=== PATIENT | female | born 2005 | race Two or more races ===

== ENCOUNTER 2024-10-26 08:00 | Outpatient (RCR) | payer BC, SELFPAY | END 2024-11-08 23:59 | disposition home or self-care (01) | LOC: SCTC 08:00 | PROVIDERS: PCP Internal Medicine; Referring Provider Internal Medicine; Visit Provider Nurse Practitioner Family | DX: D50.9 Iron deficiency anemia, unspecified (principal); N92.0 Excessive and frequent menstruation with regular cycle; Z84.2 Family history of other diseases of the genitourinary system | CPT/HCPCS: 99213; G0463 ==

== ENCOUNTER 2024-10-26 12:59 | Emergency (ER) | payer BC, SELFPAY ==
[2024-10-26] VITALS (8 sets, daily range): BP systolic 111–138; BP diastolic 71–95; PULSE 87–105; RESP 17–18; TEMP 36.8–37; O2SAT 99–100; BMI 36.6
--- NOTE | 2024-10-26 13:34 | PD.EDRME ---
Rapid Medical Screening Exam RME Arrival date/time: 10/26/24 12:59 19 yo f present to ED for c/o low hgb. hx of blood transfusion I have greeted and performed a focused initial assessment of this patient. A comprehensive ED assessment and evaluation of the patient, analysis of all test results, and completion of the medical decision making process will be conducted by additional ED providers. Chief Complaint: General Adult/Misc Complain Time Seen by Provider: 10/26/24 13:04 Vital signs: Vital Signs Temperature 98.3 F 10/26/24 13:32 Pulse Rate 105 H 10/26/24 13:32 Respiratory Rate 18 10/26/24 13:32 Blood Pressure 132/85 H 10/26/24 13:32 Pulse Oximetry (%) 99 10/26/24 13:32 Oxygen Delivery Method Room Air 10/26/24 13:32
[2024-10-26 14:12] LABS: Basophils # (Auto) 0.1 Thou/mm3 (0.0-0.2); Basophils % (Auto) 1 % (0-2.5); Eosinophils # (Auto) 0.2 Thou/mm3 (0.0-0.5); Eosinophils % (Auto) 2 % (0-10); Hematocrit 25.9 % (36.0-46.0); Immature Granulocytes % (Auto) 0 % (0-0); Immature Granulocytes Auto 0.04 Thou/mm3 (0.00-0.00); Lymphocytes # (Auto) 2.3 Thou/mm3 (1.0-4.8); Lymphocytes % (Auto) 21 % (10-50); Mean Corpuscular HGB Conc 26.3 g/dl (31.0-37.0); Mean Corpuscular Volume 73 fL (80-100); Monocytes # (Auto) 0.9 Thou/mm3 (0.0-0.8); Monocytes % (Auto) 8 % (0-12); Neutrophils # (Auto) 7.4 Thou/mm3 (1.8-7.7); Neutrophils % (Auto) 68 % (37-80); Nucleated Red Blood Cell # 0.02 Thou/mm3 (0.00-0.00); Nucleated Red Blood Cell % 0 /100 WBC (0); Platelet Count 326 Thou/mm3 (140-440); RDW Standard Deviation 58.3 fL (36.4-46.3); Red Blood Count 3.57 Miln/mm3 (4.00-5.20); White Blood Count 10.9 Thou/mm3 (4.5-11.0)
[2024-10-26 14:18] LABS: Hemoglobin 6.8 g/dL (12.0-16.0)
--- NOTE | 2024-10-26 14:18 | PC.NURSE ---
VLADIMIR FROM LAB CALLED WITH A CRITICAL LAB, HGB 6.8, HCT 25.9. PROVIDER INFORMED.
[2024-10-26 14:23] LABS: HCG,Qualitative Serum Negative
[2024-10-26 14:49] LABS: Prothrombin Time 10.5 Seconds (9.0-12.2)
--- NOTE | 2024-10-26 18:29 | PC.NURSE ---
CALL FROM SEJAL IN LAB THAT PT'S BLOOD IS READY
--- NOTE | 2024-10-26 18:59 | PD.EDADULT ---
ED General RME/HPI General Chief complaint: General Adult/Misc Complain Stated complaint: CALLED AT 11:00 TO COME FOR BLOOD TRANSFUSION Time Seen by Provider: 10/26/24 13:04 Arrival date/time: 10/26/24 12:59 RME / HPI RME / HPI narrative: 10/26/24 12:59 19 yo f present to ED for c/o low hgb. hx of blood transfusion I have greeted and performed a focused initial assessment of this patient. A comprehensive ED assessment and evaluation of the patient, analysis of all test results, and completion of the medical decision making process will be conducted by additional ED providers. Dr. Swartz?s Main ED Evaluation: 19yo female with a history of anemia presents to the ED after being sent over for abnormal labs. Patient states she was seen by her coffee break attendant earlier today and had outpatient labs done. She states she received a call at 1100 and was told to come in for a blood transfusion due to her hemoglobin being low. She is currently taking iron pills and supplements. Patient reports associated shortness of breath when ambulating and feeling fatigued. She denies any heavy periods, bloody/black stools, hematuria, hematemesis or any other associated symptoms. She states she was told today she will need to start receiving iron infusions. She denies being on any specific diet. No known allergies. Related Data Previous Rx's ?Medication ?Instructions ?Recorded acetaminophen 325 mg capsule 975 mg (3 x 325 mg) PO Q6H PRN 03/18/20 pain #30 caps ibuprofen 600 mg tablet 600 mg PO Q6H #30 tabs 03/18/20 ciprofloxacin HCl 500 mg tablet 500 mg PO BID #14 tabs 04/14/23 (Cipro) Allergies Allergy/AdvReac Type Severity Reaction Status Date / Time No Known Allergies Allergy Verified 10/26/24 13:02 Review of Systems Review of Systems Systems Reviewed: All systems reviewed, normal except as documented Past Medical History Past Medical History CARDIAC: Negative Congestive Heart Failure RESPIRATORY: Negative Chronic Obstructive Pulmonary Disease (COPD) GENITOURINARY: Negative Renal Disease ENDOCRINE: Negative Diabetes Mellitus Type 1 or Diabetes Mellitus Type 2 Social History SMOKING STATUS: Never smoker ED Exam Narrative Physical exam: GENERAL APPEARANCE: alert and oriented x 4, well-developed, well-nourished, no acute distress VITALS: All vitals were reviewed and the pulse ox is 99% on room air, which is normal according to my interpretation. HEENT: Normocephalic, atraumatic; pupils equal, round, reactive to light; EOMI; mucous membranes pink, moist; oropharynx clear NECK: Supple LUNGS: CTABL; no wheezes, no rales, no rhonchi HEART: Regular rate, regular rhythm; normal S1, S2; no murmurs ABDOMEN: non distended; normal BS; soft, no tenderness, no guarding, no rebound; no masses, no organomegaly, no hernia BACK: no CVA tenderness EXTREMITIES: atraumatic; no edema NEUROLOGIC: awake; alert and oriented x4; cranial nerves II-XII grossly intact; no focal sensory or motor deficits PSYCHIATRIC: appropriate mood and affect SKIN: warm, dry, normal color; no rashes Course Quality Measures none Orders Category Date Time Status IV [Insert IV] STAT Care 10/26/24 13:36 Active Transfuse,blood/blood products NOW Care 10/26/24 19:16 Active Transfuse,blood/blood products ONCE Care 10/26/24 14:20 Active Antibody Identification Stat Lab 10/26/24 13:43 Completed CBC Stat Lab 10/26/24 13:43 Completed HCG,Qualitative Serum Stat Lab 10/26/24 13:43 Completed PT [Prothrombin Time with INR] Stat Lab 10/26/24 13:43 Completed PTT [Partial Thromboplastin Time] Stat Lab 10/26/24 13:43 Completed Type and Screen Stat Lab 10/26/24 13:43 Completed prbc [Red Blood Cells] Stat Lab 10/26/24 13:43 Completed Vital Signs Vital signs: Vital Signs Temperature 98.3 F 10/26/24 13:32 Pulse Rate 105 H 10/26/24 13:32 Respiratory Rate 18 10/26/24 13:32 Blood Pressure 132/85 H 10/26/24 13:32 Pulse Oximetry (%) 99 10/26/24 13:32 Oxygen Delivery Method Room Air 10/26/24 13:32 [facility] Patient data External records reviewed:: [facility] previous records (Per chart review, patient was seen here on 04/22/24 for anemia.) Clinical information provided by:: patient Social determinants that could affect healthcare access:: none Patient has the following chronic illnesses:: anemia How is presenting disease/condition affected by chronic disease/condition?: caused by Evaluation data The following diagnostics were reviewed and interpreted by me:: lab results Lab and/or radiology exams considered but not ordered:: none Interpretation Summary: WBC count is normal, HnH is low at 6.8/25.9, Platelets are normal at 326, HCG is negative, according to my interpretation. Medications Medications considered but not ordered:: none Medication administrations:: 2U PRBCs Consultations Consultation(s) initiated? (list below): No Diagnosis Differential Diagnosis ED Complaint MDM: iron deficiency anemia, sideroblastic anemia, hemolytic anemia Most likely diagnosis given after review of the tests above:: Other DDx: blood dyscrasia Final Dx: see clinical impression below Admission Indicated Admission indicated?: not indicated Explain why admission is indicated or not indicated:: No criteria for admission. Admission Request Was there a request for admission?: No Disposition Plan Disposition Plan: Discharge Discharge Attestation Discharge Attestation: The patient and all family members were given an opportunity to ask questions and understood the discharge instructions. Discharge instructions specifically effects, indications for sooner follow up or return to the emergency department, and the expected course of current diagnosis. Patient condition: Stable Medical Decision Making MDM Narrative MDM Narrative: Patient reports she's had 3 blood transfusions in the past. She was informed she would need to be transfused again today and consented to the blood transfusion. The patient was placed in ED observation care at 10/26/24 at 2005 hours. The patient was placed in ED observation care because of pending blood transfusion. The patients past medical history, social history, and family history were reviewed. 2334: Patient's blood transfusion is completed. She tolerated well without any complications and feels better. Patient is stable to be discharged home. At this time, observation has ended. Scribe Attestation: 10/26/24 - Jacqui Reynoso am scribing for and in the presence of Dr. Swartz. Differential Diagnosis Differential Diagnosis: iron deficiency anemia, sideroblastic anemia, hemolytic anemia Lab Data 10/26/24 13:43 Labs: Lab Results 10/26/24 Range/Units 13:43 WBC 10.9 (4.5-11.0) Thou/mm3 RBC 3.57 L (4.00-5.20) Miln/mm3 Hgb 6.8 L* (12.0-16.0) g/dL Hct 25.9 L (36.0-46.0) % MCV 73 L (80-100) fL MCH 19.0 L (25.0-35.0) pg MCHC 26.3 L (31.0-37.0) g/dl RDW Std Deviation 58.3 H (36.4-46.3) fL Plt Count 326 D (140-440) Thou/mm3 Neut % (Auto) 68 (37-80) % Lymph % (Auto) 21 (10-50) % [place] % (Auto) 8 (0-12) % Eos % (Auto) 2 (0-10) % Baso % (Auto) 1 (0-2.5) % Neut # (Auto) 7.4 (1.8-7.7) Thou/mm3 Lymph # (Auto) 2.3 (1.0-4.8) Thou/mm3 [place] # (Auto) 0.9 H (0.0-0.8) Thou/mm3 Eos # (Auto) 0.2 (0.0-0.5) Thou/mm3 Baso # (Auto) 0.1 (0.0-0.2) Thou/mm3 Immature Gran # (Auto) 0.04 H (0.00-0.00) Thou/mm3 Absolute Nucleated RBC 0.02 H (0.00-0.00) Thou/mm3 Immature Gran % 0 (0-0) % Nucleated RBC % 0 (0) /100 WBC PT 10.5 (9.0-12.2) Seconds INR 1.0 (0.9-1.3) APTT 20.0 L (22.0-36.0) Seconds HCG, Qual Negative Blood Type O Positive Antibody Screen POSITIVE Antibody Identification Anti-E Crossmatch See Detail Blood Bank Wristband ID Yes Discharge Plan Plan Patient Disposition: HOME (Self Care) Disposition Comment: Stable for discharge home Patient condition on transfer: Stable Prescriptions/Referrals Prescriptions/Med Rec: No Action ibuprofen 600 mg tablet 600 mg PO Q6H Qty: 30 0RF acetaminophen 325 mg capsule 975 mg PO Q6H PRN (Reason: pain) Qty: 30 0RF ciprofloxacin HCl [Cipro] 500 mg tablet 500 mg PO BID Qty: 14 0RF Referrals: Dennys Heath MD [Primary Care Provider] - In 1 week Problem List Clinical Impression: Iron deficiency anemia Patient/Caregiver Discharge Instructions Discharge Activity: activity as tolerated Education Materials: Iron Supplements, ED Anemia, Iron-Deficiency (Adult) Additional Instructions: Please return to the emergency department if you have any worsening or any further medical problems and we will help you. Otherwise you should follow-up with your primary community health advocate within the next several days. You should also follow-up with your primary coffee break attendant within the next several days. You should discuss whether or not iron infusions would be a good idea for you. Print Language: Libyan Stand Alone Forms: [employer] Award Info., Patient Portal Info Letter
--- NOTE | 2024-10-26 21:47 | PC.NURSE ---
first unit of blood is in. Pt tolerated well. VS WNL.
--- NOTE | 2024-10-26 23:52 | PC.NURSE ---
dBlood is done. Pt tolerated without difficulty. VS WNL PTy is in NAD.
== END 2024-10-26 23:55 | disposition home or self-care (01) ==
PROVIDERS: Physician Assistant; Emergency Provider Emergency Medicine; PCP Internal Medicine
DX: D50.9 Iron deficiency anemia, unspecified (principal)
CPT/HCPCS: 36415; 36430; 80053; 84703; 85025; 85610; 85730; 86850; 86870; 86900; 86901; 86921; 86922; 99285; P9016

== ENCOUNTER → 2024-10-26 | Outpatient (CLI) | payer BC, SELFPAY ==
[2024-10-26 10:45] LABS: Basophils # (Auto) 0.1 Thou/mm3 (0.0-0.2); Basophils % (Auto) 1 % (0-2.5); Eosinophils # (Auto) 0.3 Thou/mm3 (0.0-0.5); Eosinophils % (Auto) 3 % (0-10); Hematocrit 26.4 % (36.0-46.0); Immature Granulocytes % (Auto) 1 % (0-0); Immature Granulocytes Auto 0.05 Thou/mm3 (0.00-0.00); Immature Reticulocyte Fraction 37.2 % (3.0-15.9); Lymphocytes # (Auto) 2.3 Thou/mm3 (1.0-4.8); Lymphocytes % (Auto) 24 % (10-50); Mean Corpuscular HGB Conc 25.8 g/dl (31.0-37.0); Mean Corpuscular Hemoglobin 18.9 pg (25.0-35.0); Mean Corpuscular Volume 74 fL (80-100); Monocytes # (Auto) 0.7 Thou/mm3 (0.0-0.8); Monocytes % (Auto) 7 % (0-12); Neutrophils # (Auto) 6.3 Thou/mm3 (1.8-7.7); Neutrophils % (Auto) 65 % (37-80); Nucleated Red Blood Cell # 0.02 Thou/mm3 (0.00-0.00); Nucleated Red Blood Cell % 0 /100 WBC (0); Platelet Count 375 Thou/mm3 (140-440); RDW Standard Deviation 59.5 fL (36.4-46.3); Red Blood Count 3.59 Miln/mm3 (4.00-5.20); Reticulocyte % (Auto) 4.9 % (0.5-1.5); Reticulocyte Absolute Auto 176.6 Biln/L (25.0-75.0); Reticulocyte Hgb Content 16.1 pg (28.0-35.0); White Blood Count 9.6 Thou/mm3 (4.5-11.0)
[2024-10-26 10:59] LABS: Hemoglobin 6.8 g/dL (12.0-16.0)
[2024-10-26 11:13] LABS: Ferritin 7 ng/mL (7.3-270.7); Folate 17.04 ng/mL (>5.38); Iron 14 mcg/dL (50-170); Percent Iron Saturation 3 % (20-55); Total Iron Binding Capacity 459 mcg/dL (250-425); Unsaturated Iron Binding 445 (225-295); Vitamin B12 604 pg/mL (211-911)
[2024-10-26 11:16] LABS: Alanine Aminotransferase 11 U/L (10-49); Albumin, Serum 4.3 gm/dL (3.5-5.0); Albumin/Globulin Ratio 1.6 (1.2-2.2); Alkaline Phosphatase 111 U/L (46-116); Anion Gap 10 (7-16); Aspartate Amino Transferase 17 U/L (0-34); BUN/Creatinine Ratio 22 Ratio (12-20); Bilirubin,Total 0.6 mg/dL (0.3-1.2); Blood Urea Nitrogen 13 mg/dL (9-23); Calcium 9.4 mg/dL (8.3-10.6); Calcium (Corrected) 9.4 mg/dL (8.5-10.1); Carbon Dioxide 23.1 mMol/L (20.0-31.0); Chloride 107 mMol/L (98-107); Creatinine (Component) 0.6 mg/dL (0.6-1.3); Globulin 2.7 gm/dL (2.3-3.5); Glucose 89 mg/dL (74-106); Osmolality,Calculated 278 (275-295); Potassium 4.3 mMol/L (3.4-5.1); Sodium 140 mMol/L (136-145); eGFR > 60 See Note
[2024-10-26 13:05] LABS: Path Review Blood Smear Sent to Pathologist
== END | disposition home or self-care (01) ==
LOC: COPL 09:46
PROVIDERS: PCP Internal Medicine; Referring Provider Nurse Practitioner Family; Visit Provider Nurse Practitioner Family
DX: D64.9 Anemia, unspecified (principal)
CPT/HCPCS: 36415; 80053; 82607; 82728; 82746; 83540; 83550; 85025; 85046

== ENCOUNTER → 2024-11-19 | Outpatient (CLI) | payer BC, SELFPAY ==
[2024-11-19 11:39] LABS: Basophils # (Auto) 0.1 Thou/mm3 (0.0-0.2); Basophils % (Auto) 1 % (0-2.5); Eosinophils # (Auto) 0.1 Thou/mm3 (0.0-0.5); Eosinophils % (Auto) 1 % (0-10); Hematocrit 36.4 % (36.0-46.0); Hemoglobin 10.8 g/dL (12.0-16.0); Immature Granulocytes % (Auto) 0 % (0-0); Immature Granulocytes Auto 0.04 Thou/mm3 (0.00-0.00); Lymphocytes # (Auto) 2.2 Thou/mm3 (1.0-4.8); Lymphocytes % (Auto) 19 % (10-50); Mean Corpuscular HGB Conc 29.7 g/dl (31.0-37.0); Mean Corpuscular Hemoglobin 23.2 pg (25.0-35.0); Mean Corpuscular Volume 78 fL (80-100); Monocytes # (Auto) 0.7 Thou/mm3 (0.0-0.8); Monocytes % (Auto) 6 % (0-12); Neutrophils # (Auto) 8.3 Thou/mm3 (1.8-7.7); Neutrophils % (Auto) 73 % (37-80); Nucleated Red Blood Cell % 0 /100 WBC (0); Platelet Count 325 Thou/mm3 (140-440); RDW Standard Deviation 62.9 fL (36.4-46.3); Red Blood Count 4.66 Miln/mm3 (4.00-5.20); White Blood Count 11.4 Thou/mm3 (4.5-11.0)
== END | disposition home or self-care (01) ==
LOC: SCTO 10:42
PROVIDERS: PCP Internal Medicine; Referring Provider Nurse Practitioner Family; Visit Provider Nurse Practitioner Family
DX: D64.9 Anemia, unspecified (principal)
CPT/HCPCS: 36415; 85025

== ENCOUNTER → 2024-11-29 | Outpatient (CLI) | payer BC, SELFPAY ==
[2024-11-29 12:22] LABS: Beta HCG,Quantitative 2 mIU/mL (<5.0)
== END | disposition home or self-care (01) ==
LOC: SCTO 11:06
PROVIDERS: PCP Internal Medicine; Referring Provider Nurse Practitioner Family; Visit Provider Nurse Practitioner Family
DX: D50.9 Iron deficiency anemia, unspecified (principal)
CPT/HCPCS: 36415; 84702

== ENCOUNTER 2024-11-30 07:49 | Outpatient (RCR) | payer BC, SELFPAY | END 2024-12-08 23:59 | disposition home or self-care (01) | LOC: SCTC 07:49 | PROVIDERS: PCP Internal Medicine; Referring Provider Internal Medicine; Visit Provider Nurse Practitioner Family | DX: D50.9 Iron deficiency anemia, unspecified (principal) | CPT/HCPCS: 96365; 96375; 99212; J1756; J2919; J3490; J7050; G0463 ==

== ENCOUNTER 2024-12-28 07:23 | Outpatient (RCR) | payer BC, SELFPAY | END 2025-01-08 23:59 | disposition home or self-care (01) | LOC: SCTC 07:23 | PROVIDERS: PCP Internal Medicine; Referring Provider Internal Medicine; Visit Provider Nurse Practitioner Family | DX: D50.9 Iron deficiency anemia, unspecified (principal) | CPT/HCPCS: 96365; 99424; 99425; J1756; J7050 ==

== ENCOUNTER 2025-02-01 14:43 | Outpatient (RCR) | payer BC, SELFPAY | END 2025-02-07 23:59 | disposition home or self-care (01) | LOC: SCTC 14:43 | PROVIDERS: PCP Internal Medicine; Referring Provider Internal Medicine; Visit Provider Nurse Practitioner Family | DX: D50.9 Iron deficiency anemia, unspecified (principal) | CPT/HCPCS: 96365; J1756; J7050 ==

== ENCOUNTER → 2025-04-18 | Outpatient (CLI) | payer BC, SELFPAY ==
[2025-04-18 10:40] LABS: Basophils # (Auto) 0.1 Thou/mm3 (0.0-0.2); Basophils % (Auto) 1 % (0-2.5); Eosinophils # (Auto) 0.2 Thou/mm3 (0.0-0.5); Eosinophils % (Auto) 2 % (0-10); Hematocrit 39.8 % (36.0-46.0); Hemoglobin 12.7 g/dL (12.0-16.0); Immature Granulocytes Auto 0.02 Thou/mm3 (0.00-0.00); Lymphocytes # (Auto) 1.9 Thou/mm3 (1.0-4.8); Lymphocytes % (Auto) 21 % (10-50); Mean Corpuscular HGB Conc 31.9 g/dl (31.0-37.0); Mean Corpuscular Hemoglobin 27.1 pg (25.0-35.0); Mean Corpuscular Volume 85 fL (80-100); Monocytes # (Auto) 0.6 Thou/mm3 (0.0-0.8); Monocytes % (Auto) 7 % (0-12); Neutrophils # (Auto) 6.3 Thou/mm3 (1.8-7.7); Neutrophils % (Auto) 70 % (37-80); Nucleated Red Blood Cell # 0.00 Thou/mm3 (0.00-0.00); Nucleated Red Blood Cell % 0 /100 WBC (0); Platelet Count 260 Thou/mm3 (140-440); RDW Standard Deviation 49.1 fL (36.4-46.3); Red Blood Count 4.69 Miln/mm3 (4.00-5.20); White Blood Count 9.0 Thou/mm3 (4.5-11.0)
[2025-04-18 10:53] LABS: Alanine Aminotransferase 20 U/L (10-49); Albumin, Serum 4.2 gm/dL (3.5-5.0); Albumin/Globulin Ratio 1.7 (1.2-2.2); Alkaline Phosphatase 132 U/L (46-116); Anion Gap 9 (7-16); Aspartate Amino Transferase 21 U/L (0-34); BUN/Creatinine Ratio 20 Ratio (12-20); Bilirubin,Total 0.6 mg/dL (0.3-1.2); Blood Urea Nitrogen 12 mg/dL (9-23); Calcium 9.6 mg/dL (8.3-10.6); Calcium (Corrected) 9.6 mg/dL (8.5-10.1); Carbon Dioxide 28.5 mMol/L (20.0-31.0); Chloride 104 mMol/L (98-107); Creatinine (Component) 0.6 mg/dL (0.6-1.3); Globulin 2.5 gm/dL (2.3-3.5); Glucose 82 mg/dL (74-106); Osmolality,Calculated 279 (275-295); Potassium 4.5 mMol/L (3.4-5.1); Sodium 141 mMol/L (136-145); Total Protein 6.7 gm/dL (5.7-8.2); eGFR > 60 See Note
== END | disposition home or self-care (01) ==
LOC: SCTO 08:58
PROVIDERS: PCP Internal Medicine; Referring Provider Nurse Practitioner Family; Visit Provider Nurse Practitioner Family
DX: D50.9 Iron deficiency anemia, unspecified (principal)
CPT/HCPCS: 36415; 80053; 85025

== ENCOUNTER 2025-04-20 09:47 | Outpatient (RCR) | payer BC, SELFPAY | END 2025-05-10 23:59 | disposition home or self-care (01) | LOC: SCTC 09:47 | PROVIDERS: PCP Internal Medicine; Referring Provider Internal Medicine; Visit Provider Nurse Practitioner Family | DX: Z09 Encounter for follow-up examination after completed treatment for conditions other than malignant neoplasm (principal); Z86.2 Personal history of diseases of the blood and blood-forming organs and certain disorders involving the immune mechanism; C80.1 Malignant (primary) neoplasm, unspecified; Z90.710 Acquired absence of both cervix and uterus | CPT/HCPCS: 99212; G0463 ==